=== PATIENT | female | born 1960 | race Caucasian/White ===

== ENCOUNTER 2020-06-10 08:36 | Emergency (ER) | payer BC ==
[~2020-06-10] VITALS: Ht 165.1 cm; Wt 56.7 kg
[~2020-06-10 08:36] MED LIST: DCS100C PO; ESTR1TAB24 PO; HYDR1CAP2 PO; HYDR1TAB75 PO; IBP800T PO; LORA-877 PO; OXYC-143 PO; ZLP10T PO
[2020-06-10 08:47] VITALS: BP 90/65
--- NOTE | 2020-06-10 09:00 | ED Lower Extremity ---
General Chief Complaint: Lower Extremity Stated Complaint: FALL;R ANKLE INJ Source: patient Exam Limitations: no limitations History of Present Illness Date Seen by Provider: Jun 10, 2020 Time Seen by Provider: 08:51 Initial Comments The patient presents to the ER by private conveyance with chief complaint of right ankle pain and swelling. Last night she said she was drinking alcohol and lost her balance falling but she does not member exactly how she twisted her ankle. Her daughter helped her the put to bed last night and gave her an ice pack for her ankle. She took some Tylenol this morning along with her blood pressure medicines. She also took some Claritin-D because she's having allergies. She has no previous history of injury to this ankle or foot. The patient is unable to bear any weight on her ankle this morning. Her daughter has crutches and a boot. Allergies and Home Medications Allergies Uncoded Allergies: HAYFEVER (Allergy, 06/04/10) Home Medications Docusate Sodium 100 Mg Capsule, 100 MG PO BID, (Reported) Estradiol 1 Mg Tablet, 1 MG PO DAILY, (Reported) Ibuprofen 800 Mg Tab, 800 MG PO Q6H PRN, (Reported) Loratadine/Pseudoephedrine Sul 1 Each Tab.sr.24h, 1 EACH PO DAILY, (Reported) Zolpidem Tartrate 10 Mg Tab, 10 MG PO HS PRN, (Reported) Patient Home Medication List Home Medication List Reviewed: Yes Review of Systems Constitutional: No chills, No diaphoresis EENTM: No ear discharge, No ear pain Respiratory: No cough, No short of breath Cardiovascular: No chest pain, No Hx of Intervention Gastrointestinal: No abdominal pain, No nausea, No vomiting Genitourinary: No discharge, No dysuria Musculoskeletal: No back pain; joint pain All Other Systems Reviewed Negative Unless Noted: Yes Past Jxoqcsb-Etdiim-Jniakw Hx Patient Social History Alcohol Use: Regular Use Alcohol Beverage of Choice: Beer Recreational Drug Use: No Smoking Status: Current Everyday Smoker Type Used: Cigarettes Immunizations Up To Date Tetanus Booster (TDap): Unknown Seasonal Allergies Seasonal Allergies: Yes Past Medical History Surgeries: Yes Hysterectomy, Tonsillectomy Respiratory: No Cardiac: Yes High Cholesterol, Hypertension Neurological: No Reproductive Disorders: 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 oz. 61.303445yq; BMI Method:Stated General Appearance: WD/WN, no apparent distress HEENT: PERRL/EOMI, pharynx normal Neck: normal inspection Cardiovascular: normal peripheral pulses, regular rate, rhythm Respiratory: no respiratory distress, no accessory muscle use Knees: bilateral knee non-tender, bilateral knee normal inspection, bilateral knee normal range of motion, bilateral knee no evidence of injury Ankles: left ankle non-tender, left ankle normal inspection, left ankle normal range of motion, left ankle no evidence of injury; right ankle bone tenderness (lateral malleolus posteriorly tender to palpation), right ankle joint effusion (moderate), right ankle limited range of motion (secondary to pain), right ankle pain, right ankle soft tissue tenderness, right ankle swelling (moderate) Feet: left foot non-tender; bilateral foot normal inspection, bilateral foot normal range of motion; left foot no evidence of injury; right foot bone tenderness (over the proximal shaft of the third fourth and fifth metatarsal), right foot pain, right foot swelling (small) Neurologic/Tendon: normal sensation, normal motor functions, normal tendon functions, responds to pain, no evidence tendon injury Neurologic/Psychiatric: no motor/sensory deficits, alert, normal mood/affect, oriented x 3 Skin: normal color, warm/dry Progress/Results/Core Measures Results/Orders My Orders Orders - MING VINCENT Foot, Right, 3 View (06/10/20 08:57) Ankle, Right, 2 Views (06/10/20 08:57) Vital Signs/I&O 06/10/20 08:47 Temp 36.5 Pulse 82 Resp 16 B/P (MAP) 90/65 (73) Pulse Ox 99 O2 Delivery Room Air Progress Progress Note : Time: 09:05 Progress Note Rice therapy, offered NSAIDs and she declined. X-ray of the right foot and right ankle [place] foot and ankle rules. Diagnostic Imaging Diagonstic Imaging: Xray Plain Films/CT/US/NM/MRI: ankle (right) Comments [facility]. [place], [place] NAME: ALMA ROSA PROCTOR [facility] REC#: [id number] PT STATUS: REG ER : 1960 PHYSICIAN: MING VINCENT MD ADMIT DATE: 06/10/20/ER Draft Date of Exam:06/10/20 ANKLE, RIGHT, 2 VIEWS INDICATION: Ankle pain EXAMINATION: Right ankle dated 06/10/2020 FINDINGS: 2 views of the ankle with correlation made to a lateral view from the foot radiographs obtained on the same date. The talar dome and ankle mortise appear intact. Minimal soft tissue swelling about the ankle is noted. There is a question transverse fracture through the distal fibula nondisplaced in appearance. IMPRESSION: 1. Suspected nondisplaced lateral malleolus fracture with soft tissue swelling. Dictated on workstation # [id number] Dict: 06/10/20930 Trans: 06/10/20940 NATI [id number] Interpreted by: SAYRA TRACY MD Electronically signed by: Reviewed: Reviewed by Me Diagonstic Imaging: Xray Plain Films/CT/US/NM/MRI: other (right foot) Comments NAME: ALMA ROSA PROCTOR [facility] REC#: [id number] PT STATUS: REG ER : 1960 PHYSICIAN: MING VINCENT MD ADMIT DATE: 06/10/20/ER Draft Date of Exam:06/10/20 FOOT, RIGHT, 3 VIEW INDICATION: Foot pain. 3 views were obtained FINDINGS: The alignment is normal. There is no fracture or dislocation. Soft tissues are unremarkable. IMPRESSION: No acute fracture or dislocation. Dictated on workstation # [id number] Dict: 06/10/20919 Trans: 06/10/20922 [facility] [id number] Interpreted by: DARYL WALDEN MD Electronically signed by: Reviewed: Reviewed by Me Departure Impression Primary Impression: Ankle fracture Qualified Codes: S82.891A - Other fracture of right lower leg, initial encounter for closed fracture Disposition: 01 HOME, SELF-CARE Condition: Stable Departure-Patient Inst. Decision time for Depature: 09:49 Referrals: KEELEY KRISHNA MD (PCP) Primary Care Physician Patient Instructions: Ankle Fracture (DC) Add. Discharge Instructions: Wear the boot for the next 1-2 weeks. Plan to follow-up in one week with your primary care doctor or with the orthopedic surgeon of your choice. Tylenol 1000 mg every 8 hours as necessary for pain. Ibuprofen 800 mg every 8 hours as necessary for pain. Hydrocodone one tablet every 6 hours as necessary for breakthrough pain it keeps you from being functional. You may use crutches if you wish. Rest your ankle when not needed. Elevate your ankle above the level of your heart to reduce swelling. Ice applied every 2-4 hours for 20 minutes as necessary for swelling and pain. All discharge instructions reviewed with patient and/or family. Voiced understanding. Scripts Hydrocodone/Acetaminophen (Hydrocodone-Acetamin 5-325 mg) 1 Each Tablet 1 EACH PO Q6H PRN for PAIN-BREAKTHROUGH, #8 TAB 0 Refills Prov: MING VINCENT 06/10/20 Work/School Note: Work Release Form Date Seen in the Emergency Department: Jun 10, 2020 Return to Work: Jun 11, 2020 Restrictions: Need Release from Doctor Other Restrictions Listed Below: Minimize standing and walking on right ankle until 06/17/20. MING VINCENT Jun 10, 2020 09:00
--- NOTE | 2020-06-10 09:23 | Diagnostic Imaging Report ---
INDICATION: Foot pain. 3 views were obtained FINDINGS: The alignment is normal. There is no fracture or dislocation. Soft tissues are unremarkable. IMPRESSION: No acute fracture or dislocation. Dictated by: Dictated on workstation # [id number]
--- NOTE | 2020-06-10 09:42 | Diagnostic Imaging Report ---
INDICATION: Ankle pain EXAMINATION: Right ankle dated 06/10/2020 FINDINGS: 2 views of the ankle with correlation made to a lateral view from the foot radiographs obtained on the same date. The talar dome and ankle mortise appear intact. Minimal soft tissue swelling about the ankle is noted. There is a question transverse fracture through the distal fibula nondisplaced in appearance. IMPRESSION: 1. Suspected nondisplaced lateral malleolus fracture with soft tissue swelling. Dictated by: Dictated on workstation # [id number]
[2020-06-10] MEDS ORDERED: ACHD5005 PO (09:50)
== END 2020-06-10 10:06 | disposition home or self-care (01) ==
LOC: EDUNIT# 08:36 → ER 08:37
DX: S82.64XA Nondisplaced fracture of lateral malleolus of right fibula, initial encounter for closed fracture (principal); F17.210 Nicotine dependence, cigarettes, uncomplicated; X50.1XXA Overexertion from prolonged static or awkward postures, initial encounter
CPT/HCPCS: 73600; 73630

== ENCOUNTER 2021-04-16 05:32 | Emergency (ER) | payer BC ==
[~2021-04-16] VITALS: Ht 162.6 cm; Wt 59.1 kg
[~2021-04-16 05:32] MED LIST changes: +ACHD5005 PO
[2021-04-16] MEDS ORDERED: FAMOTIDINE 20MG/2ML IV (PEPCID) IV STA (06:07)
[2021-04-16] MEDS ORDERED: ONDANSETRON 4 MG/2 ML (SDV) Z0FRAN IVP ONE (06:15)
[2021-04-16] MEDS ORDERED: LIDOCAINE 2% VISCOUS 15 ML UDC PO ONE (06:15)
[2021-04-16] MEDS ORDERED: ANTACID SUSP 30 ML UDC (MYLANTA) PO ONE (06:15)
[2021-04-16] MEDS ORDERED: NS IV 1000 ML 1,000 ML IV SCH ×2 (06:15→07:00)
[2021-04-16 06:19] LABS: ALBUMIN 4.1 GM/DL (3.2-4.5); POTASSIUM 3.7 MMOL/L (3.6-5.0)
--- NOTE | 2021-04-16 06:19 | ED Abdominal Pain ---
General Chief Complaint: Abdominal/GI Problems Stated Complaint: BACK,ABD & KIDNEY PAIN Source of Information: Patient Exam Limitations: No Limitations History of Present Illness Date Seen by Provider: Apr 16, 2021 Time Seen by Provider: 06:00 Initial Comments Patient to the ER by private conveyance from home with chief complaint of a bdominal pain in her epigastric region reminiscent of her pancreatitis in the past. She is a daily drinker of about a pint of whiskey a day. She was recently started on Carafate by Dr. MILNER. She is never had EGD but she did have colonoscopy in the past as well as this year she has had Cologuard both which were normal. She has had a normal bowel movement yesterday. No blood in the stool or black tarry stool. She is having nausea and vomiting when she tried to take her Carafate this morning. She has not had anything at home for nausea. Allergies and Home Medications Allergies Uncoded Allergies: HAYFEVER (Allergy, Unknown, 04/16/21) Home Medications Docusate Sodium 100 Mg Capsule, 100 MG PO BID, (Reported) Estradiol 1 Mg Tablet, 1 MG PO DAILY, (Reported) Hydrocodone/Acetaminophen 1 Each Tablet, 1 EACH PO Q6H PRN for PAIN-BREAKTHROUGH Prescribed by: MING VINCENT on 06/10/20 0950 Ibuprofen 800 Mg Tab, 800 MG PO Q6H PRN, (Reported) Loratadine/Pseudoephedrine Sul 1 Each Tab.sr.24h, 1 EACH PO DAILY, (Reported) Zolpidem Tartrate 10 Mg Tab, 10 MG PO HS PRN, (Reported) Patient Home Medication List Home Medication List Reviewed: Yes Review of Systems Review of Systems Constitutional: No chills, No fever EENTM: No Blurred Vision, No Double Vision Respiratory: Denies Cough, Denies Shortness of Air Cardiovascular: Denies Chest Pain Gastrointestinal: Denies Abdominal Pain, Denies Diarrhea All Other Systems Reviewed Negative Unless Noted: Yes Past Fuqfsnh-Ddybyl-Pitqxx Hx Patient Social History Tobacco Use?: No Alcohol Use?: Yes Alcohol type: Hard Liquor Alcohol Frequency: Daily (Pint per day) Immunizations Up To Date Tetanus Booster (TDap): Unknown Seasonal Allergies Seasonal Allergies: Yes Past Medical History Surgeries: Yes Hysterectomy, Tonsillectomy Respiratory: No Cardiac: Yes High Cholesterol, Hypertension Neurological: No Reproductive Disorders: No [employer] History: Hysterectomy Sexually Transmitted Disease: No Genitourinary: No Gastrointestinal: No Musculoskeletal: No Endocrine: No Cancer: No Psychosocial: Yes Anxiety Integumentary: No Blood Disorders: No Physical Exam Vital Signs Vital Signs - First Documented 04/16/21 05:49 Temp 36.2 Pulse 101 Resp 18 B/P (MAP) 196/120 (145) Pulse Ox 98 O2 Delivery Room Air Capillary Refill : Height/Weight/BMI Height: 5'5" Weight: 135lbs. oz. 61.430496qo; 20.00 BMI Method:Stated General Appearance: WD/WN, no apparent distress HEENT: PERRL/EOMI Neck: full range of motion, normal inspection Respiratory: lungs clear, normal breath sounds, no respiratory distress, no accessory muscle use Cardiovascular: normal peripheral pulses, regular rate, rhythm Peripheral Pulses: 2+ Radial Pulses (R), 2+ Radial Pulses (L) Gastrointestinal: normal bowel sounds, soft, tenderness (Epigastric), other (Negative for Deleon sign Rovsing sign or rebound tenderness over McBurney's point.) Extremities: normal inspection, no pedal edema, normal capillary refill Neurologic/Psychiatric: alert, normal mood/affect, oriented x 3 Skin: normal color, warm/dry Progress/Results/Core Measures Results/Orders Lab Results Laboratory Tests Test 04/16/21 05:50 04/16/21 05:55 04/16/21 06:07 Range/Units Urine Color YELLOW Urine Clarity CLEAR Urine pH 6.0 5-9 Urine Specific [place] 1.020 1.016-1.022 Urine Protein TRACE H NEGATIVE Urine Glucose (UA) 1+ H NEGATIVE Urine Ketones NEGATIVE NEGATIVE Urine Nitrite NEGATIVE NEGATIVE Urine Bilirubin NEGATIVE NEGATIVE Urine Urobilinogen 0.2 < = 1.0 MG/DL Urine Leukocyte Esterase 2+ H NEGATIVE Urine RBC (Auto) 1+ H NEGATIVE Urine RBC 0-2 /HPF Urine WBC 10-25 H /HPF Urine Squamous Epithelial Cells 10-25 H /HPF Urine Crystals NONE /LPF Urine Bacteria MODERATE H /HPF Urine Casts PRESENT /LPF Urine Hyaline Casts 0-2 H /LPF Urine Mucus NEGATIVE /LPF Urine Culture Indicated YES Sodium Level 136 135-145 MMOL/L Potassium Level 3.7 3.6-5.0 MMOL/L Chloride Level 103 98-107 MMOL/L Carbon Dioxide Level 20 L 21-32 MMOL/L Anion Gap 13 5-14 MMOL/L Blood Urea Nitrogen 23 H 7-18 MG/DL Creatinine 1.51 H 0.60-1.30 MG/DL Estimat Glomerular Filtration Rate 35 BUN/Creatinine Ratio 15 Glucose Level 176 H 70-105 MG/DL Calcium Level 12.0 H 8.5-10.1 MG/DL Corrected Calcium 11.9 H 8.5-10.1 MG/DL Total Bilirubin 0.5 0.1-1.0 MG/DL Aspartate Amino Transf (AST/SGOT) 27 5-34 U/L Alanine Aminotransferase (ALT/SGPT) 37 0-55 U/L Alkaline Phosphatase 86 40-136 U/L C-Reactive Protein High Sensitivity 0.31 0.00-0.50 MG/DL Total Protein 8.1 6.4-8.2 GM/DL Albumin 4.1 3.2-4.5 GM/DL Lipase 558 H 8-78 U/L Serum Alcohol < 10 <10 MG/DL White Blood Count 10.4 4.3-11.0 10^3/uL Red Blood Count 4.24 3.80-5.11 10^6/uL Hemoglobin 13.8 11.5-16.0 g/dL Hematocrit 42 35-52 % Mean Corpuscular Volume 98 80-99 fL Mean Corpuscular Hemoglobin 33 25-34 pg Mean Corpuscular Hemoglobin Concent 33 32-36 g/dL Red Cell Distribution Width 13.7 10.0-14.5 % Platelet Count 458 H 130-400 10^3/uL Mean Platelet Volume 10.2 9.0-12.2 fL Immature Granulocyte % (Auto) 0 % Neutrophils (%) (Auto) 60 42-75 % Lymphocytes (%) (Auto) 27 12-44 % Monocytes (%) (Auto) 9 0-12 % Eosinophils (%) (Auto) 3 0-10 % Basophils (%) (Auto) 0 0-10 % Neutrophils # (Auto) 6.3 1.8-7.8 10^3/uL Lymphocytes # (Auto) 2.8 1.0-4.0 10^3/uL Monocytes # (Auto) 0.9 0.0-1.0 10^3/uL Eosinophils # (Auto) 0.3 0.0-0.3 10^3/uL Basophils # (Auto) 0.0 0.0-0.1 10^3/uL Immature Granulocyte # (Auto) 0.0 0.0-0.1 10^3/uL My Orders Orders - MING VINCENT Ed Iv/Invasive Line Start (04/16/21 06:07) Ns Iv 1000 Ml (Sodium Chloride 0.9%) (04/16/21 06:15) Ondansetron Injection (Zofran Injectio (04/16/21 06:15) Lidocaine 2% Viscous 15 Ml (Xylocaine Vi (04/16/21 06:15) Antacid Suspension (Mylanta Suspension (04/16/21 06:15) Famotidine Injection (Pepcid Injection) (04/16/21 06:07) Cbc With Automated Diff (04/16/21 06:07) Comprehensive Metabolic Panel (04/16/21 06:07) Hs C Reactive Protein (04/16/21 06:07) Lipase (04/16/21 06:07) Ua Culture If Indicated (04/16/21 06:07) Ed Iv/Invasive Line Start (04/16/21 06:47) Ns Iv 1000 Ml (Sodium Chloride 0.9%) (04/16/21 07:00) Morphine Injection (Morphine Injection (04/16/21 06:47) Iohexol Injection (Omnipaque 350 Mg/Ml 1 (04/16/21 07:00) Ns (Ivpb) (Sodium Chloride 0.9% Ivpb Bag (04/16/21 07:00) Received Contrast (Hold Metformin- Contr (04/16/21 07:00) Medications Given in ED Current Medications Medications Dose Ordered Sig/Steven Route Start Time Stop Time Status Last Admin Dose Admin Al Hydrox/Mg Hydrox/Simethicone 30 ml ONCE ONCE PO 04/16/21 06:15 04/16/21 06:16 DC 04/16/21 06:24 30 ML Lidocaine HCl 15 ml ONCE ONCE PO 04/16/21 06:15 04/16/21 06:16 DC 04/16/21 06:24 15 ML Ondansetron HCl 8 mg ONCE ONCE IVP 04/16/21 06:15 04/16/21 06:16 DC 04/16/21 06:24 8 MG Vital Signs/I&O 04/16/21 05:49 Temp 36.2 Pulse 101 Resp 18 B/P (MAP) 196/120 (145) Pulse Ox 98 O2 Delivery Room Air Progress Progress Note : Time: 06:10 Progress Note Zofran and a GI cocktail. Labs including a lipase. Diagnostic Imaging Diagonstic Imaging: CT Plain Films/CT/US/NM/MRI: abdomen, pelvis Comments NAME: ALMA ROSA PROCTOR [facility] REC#: [id number] PT STATUS: REG ER : 1960 PHYSICIAN: MING VINCENT MD ADMIT DATE: 04/16/21/ER Draft Date of Exam:04/16/21 CT ABDOMEN/PELVIS WO EXAM: CT abdomen and pelvis without intravenous contrast. All CT scans use one or more of the following dose optimizing techniques: automated exposure control, MA and/or KvP adjustment based on patient size and exam type or iterative reconstruction. INDICATION: Abdominal pain with bilateral flank pain. Patient reports stage III renal failure. FINDINGS: The lung bases are clear. No evidence of hydronephrosis. No renal or ureteral calculi demonstrated. No perinephric fluid. Liver shows fatty change. Gallbladder is not distended. Bile ducts are not dilated. Pancreas and spleen are normal. The adrenal glands are normal. Stomach and small bowel are not distended. There is a small periumbilical ventral hernia containing loop of small bowel without evidence of incarceration. No pelvic masses. No intra-abdominal adenopathy. No bony lesions. IMPRESSION: 1. No evidence of renal calculi or obstruction. 2. Fatty changes of the liver. 3. Small ventral hernia periumbilical region without evidence of incarceration. Dictated on workstation # [id number] Dict: 04/16/21 0747 Trans: 04/16/21 0753 MICHI [id number] Interpreted by: ROB MINOR MD Electronically signed by: Reviewed: Reviewed by Me Departure Impression Primary Impression: Pancreatitis Qualified Codes: K85.20 - Alcohol induced acute pancreatitis without necrosis or infection Disposition: XF SHT-TRM HOSP Condition: Stable Transfer Transfer Reason: Diversion Time Spoke to Accepting Phy: 08:[address] Ruiz accepts the patient after discussing the case with Dr. Vargas. Transfer Facility: [facility] Method of Transfer: Private Vehicle (Daughter) Departure-Patient Inst. Referrals: JAY MILNER DO (PCP/Family) Primary Care Physician MING VINCENT Apr 16, 2021 06:19
[2021-04-16 06:21] LABS: TOTAL PROTEIN 8.1 GM/DL (6.4-8.2)
[2021-04-16 06:22] LABS: BASOPHILS % (AUTO) 0 % (0-10); EOSINOPHILS # (AUTO) 0.3 10^3/uL (0.0-0.3); EOSINOPHILS % (AUTO) 3 % (0-10); HEMATOCRIT 42 % (35-52); HEMOGLOBIN 13.8 g/dL (11.5-16.0); LYMPHOCYTES # (AUTO) 2.8 10^3/uL (1.0-4.0); LYMPHOCYTES % (AUTO) 27 % (12-44); MEAN CORPUSCULAR HEMOGLOBIN 33 pg (25-34); MEAN CORPUSCULAR HGB CONC 33 g/dL (32-36); MEAN CORPUSCULAR VOLUME 98 fL (80-99); MEAN PLATELET VOLUME 10.2 fL (9.0-12.2); MONOCYTES # (AUTO) 0.9 10^3/uL (0.0-1.0); MONOCYTES % (AUTO) 9 % (0-12); NEUTROPHILS # (AUTO) 6.3 10^3/uL (1.8-7.8); NEUTROPHILS % (AUTO) 60 % (42-75); PLATELET COUNT 458 10^3/uL (130-400); WHITE BLOOD COUNT 10.4 10^3/uL (4.3-11.0)
[2021-04-16 06:23] LABS: BILIRUBIN,TOTAL 0.5 MG/DL (0.1-1.0)
[2021-04-16 06:25] LABS: CREATININE SERUM 1.51 MG/DL (0.60-1.30)
[2021-04-16 06:30] LABS: BILIRUBIN,URINE NEGATIVE (NEGATIVE); CLARITY,URINE CLEAR; COLOR,URINE YELLOW; GLUCOSE, URINE (UA) 1+ (NEGATIVE); KETONES,URINE NEGATIVE (NEGATIVE); LEUKOCYTE ESTERASE ,URINE 2+ (NEGATIVE); NITRITE,URINE NEGATIVE (NEGATIVE); PROTEIN,URINE TRACE (NEGATIVE)
[2021-04-16] MEDS ORDERED: morphine INJ 10 MG/ML 1ML (SYR OR VIAL) IVP STA ×2 (06:47→08:01)
[2021-04-16] MEDS ORDERED: HOLD METFORMIN - RECEIVED CONTRAST 20 ML VIAL IV SCH (07:00)
[2021-04-16] MEDS ORDERED: NS 100 ML (IVPB) BAG IV ONE (07:00)
[2021-04-16] MEDS ORDERED: IOHEXOL 350 MG/ML 100 ML (OMNIPAQUE 350) VIAL IV ONE (07:00)
[2021-04-16 07:30] LABS: BACTERIA,URINE MODERATE /HPF; HYALINE CASTS, URINE 0-2 /LPF; RBC,URINE 0-2 /HPF
[2021-04-16] MEDS ORDERED: DEXTROSE 50% 50 ML (IMS) SYR IV ONE (07:45)
--- NOTE | 2021-04-16 07:54 | Diagnostic Imaging Report ---
EXAM: CT abdomen and pelvis without intravenous contrast. All CT scans use one or more of the following dose optimizing techniques: automated exposure control, MA and/or KvP adjustment based on patient size and exam type or iterative reconstruction. INDICATION: Abdominal pain with bilateral flank pain. Patient reports stage III renal failure. FINDINGS: The lung bases are clear. No evidence of hydronephrosis. No renal or ureteral calculi demonstrated. No perinephric fluid. Liver shows fatty change. Gallbladder is not distended. Bile ducts are not dilated. Pancreas and spleen are normal. The adrenal glands are normal. Stomach and small bowel are not distended. There is a small periumbilical ventral hernia containing loop of small bowel without evidence of incarceration. No pelvic masses. No intra-abdominal adenopathy. No bony lesions. IMPRESSION: 1. No evidence of renal calculi or obstruction. 2. Fatty changes of the liver. 3. Small ventral hernia periumbilical region without evidence of incarceration. Dictated by: Dictated on workstation # [id number]
[2021-04-16] MEDS ORDERED: LABETALOL HCL 20 MG/4 ML VIAL IV ONE (08:30)
[2021-04-16 09:39] VITALS: BP 169/101
== END 2021-04-16 09:48 | disposition short-term general hospital (02) ==
LOC: EDUNIT# 05:32 → ER 05:34 → UNDOADMOB 07:00 → 4TH 07:00 → ER 09:48
DX: K85.90 Acute pancreatitis without necrosis or infection, unspecified (principal); I10 Essential (primary) hypertension
CPT/HCPCS: 74176; 80053; 81000; 83690; 85025; 86141; 87088; 99284; G0480; 36415; 80320